=== PATIENT | female | born 1960 | race Hispanic/Latino ===

== ENCOUNTER 2018-05-18 22:34 | Emergency (ER) | payer MEDICAID ==
[2018-05-18 22:48] VITALS: O2SAT 99; BMI 26.1
--- NOTE | 2018-05-18 23:32 | ED PDOC ---
Arrival/HPI - General Chief Complaint: Trauma Time Seen by Provider: 05/18/18 22:50 Historian: Patient - History of Present Illness Narrative History of Present Illness (Text): 05/18/18 23:32 Luz Avalos is a 57 year old female who presents to the Emergency department status post mechanical fall tonight. Patient states she tripped and fell while at home, now complaining of right knee pain and left wrist pain with associated swelling. Patient denies any weakness/numbness/tingling in the extremity, back pain, neck pain, headache, dizziness, or any other complaints. 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) - Endocrine/Metabolic Hx Diabetes Mellitus Type 2: Yes - Psychiatric Hx Substance Use: No - Anesthesia Hx Anesthesia: No Hx Anesthesia Reactions: No Hx Malignant Hyperthermia: No Family/Social History - Physician Review Nursing Documentation Reviewed: Yes Family/Social History: Unknown Family HX Smoking Status: Never Smoked Hx Alcohol Use: No Hx Substance Use: No Allergies/Home Meds Allergies/Adverse Reactions: Allergies Penicillins Adverse Reaction (Verified 05/18/18 22:49) RASH Home Medications: Home Meds Medication Instructions Recorded Confirmed Clonazepam [Klonopin] 1 mg PO DAILY 05/18/18 05/18/18 Colchicine [Colcrys] 0.6 mg PO DAILY 05/18/18 05/18/18 Lamotrigine [Lamictal (Blue)] 25 mg PO DAILY 05/18/18 05/18/18 Propranolol [Inderal] 40 mg PO DAILY 05/18/18 05/18/18 QUEtiapine [SEROquel XR] 50 mg PO DAILY 05/18/18 05/18/18 Ramipril [Altace] 10 mg PO DAILY 05/18/18 05/18/18 Review of Systems - Physician Review All systems were reviewed & negative as marked: Yes - Review of Systems Constitutional: Normal. absent: Fevers Eyes: Normal ENT: Normal Respiratory: Normal. absent: SOB, Cough Cardiovascular: Normal. absent: Chest Pain Gastrointestinal: Normal. absent: Abdominal Pain, Diarrhea, Nausea, Vomiting Genitourinary Female: Normal. absent: Dysuria, Frequency, Urine Output Changes Musculoskeletal: Arthralgias (+left wrist pain/swelling, +right knee pain). absent: Back Pain, Neck Pain Skin: Normal Neurological: Normal Endocrine: Normal Hemo/Lymphatic: Normal Psychiatric: Normal Physical Exam Vital Signs Reviewed: Yes Vital Signs Temp Pulse Resp BP Pulse Ox 05/19/18 03:22 98.8 F 80 18 128/84 99 05/18/18 22:45 98.7 F 70 16 138/88 99 Temperature: Afebrile Blood Pressure: Normal Pulse: Regular Respiratory Rate: Normal Appearance: Positive for: Well-Appearing, Non-Toxic, Comfortable Pain Distress: None Mental Status: Positive for: Alert and Oriented X 3 - Systems Exam Head: Present: Atraumatic, Normocephalic Pupils: Present: PERRL Extroacular Muscles: Present: EOMI Conjunctiva: Present: Normal Mouth: Present: Moist Mucous Membranes Neck: Present: Normal Range of Motion. No: Meningeal Signs, MIDLINE TENDERNESS , Paraspinal Tenderness Respiratory/Chest: Present: Clear to Auscultation, Good Air Exchange. No: Respiratory Distress, Accessory Muscle Use Cardiovascular: Present: Regular Rate and Rhythm, Normal S1, S2. No: Murmurs Abdomen: No: Tenderness, Distention, Peritoneal Signs Back: Present: Normal Inspection Upper Extremity: Present: NORMAL PULSES, Tenderness (Tenderness to left wrist), Swelling (Swelling to left wrist), Neurovascularly Intact, Capillary Refill < 2s. No: Cyanosis, Edema, Normal ROM (pain with any attempt at flexion of left wrist), Erythema, Temperature Abnormalties Lower Extremity: Present: NORMAL PULSES, Normal ROM, Neurovascularly Intact, Capillary Refill < 2 s, Other (Superficial abrasion to right knee with hematoma below right knee). No: Edema, Swelling, Erythema, Deformity, Temperature Abnormalties Neurological: Present: GCS=15, CN II-XII Intact, Speech Normal, Motor Func Grossly Intact, Normal Sensory Function, Normal Cerebellar Funct Skin: Present: Warm, Dry, Normal Color. No: Rashes Psychiatric: Present: Alert, Oriented x 3, Normal Insight, Normal Concentration Medical Decision Making ED Course and Treatment: 05/18/18 23:32 Impression: 57 year old female presents s/p mechanical fall with left wrist pain and right knee pain. Differential Diagnosis included but are not limited to: fracture vs. sprain vs. contusion Plan: -- XR Left Wrist -- XR Right Knee -- Toradol -- Reassess and disposition Progress Notes: 05/19/18 02:[address] Davis's service 05/19/18 02:40 2nd call placed to Dr. Davis's service. Awaiting call back. 05/19/18 02:443y, XR Left Wrist shows: Bones/joints: Impacted transverse fractures of the distal radius and distal ulna. Intra-articular extension of the radial fracture. No dislocation. Soft tissues: Unremarkable. No radiopaque foreign body. IMPRESSION: 1. Impacted transverse fractures of the distal radius and distal ulna. 2. Intra-articular extension of the radial fracture. XR Right Knee shows: Bones/joints: Small joint effusion. No patella sanjeev demonstrated. No acute fracture. No dislocation. Soft tissues: Question avulsion of the infrapatellar tendon from the anterior tibial spine with wedgeshaped defect and overlying soft tissue swelling. IMPRESSION: 1. Question avulsion of the infrapatellar tendon from the anterior tibial spine with wedge-shaped defect and overlying soft tissue swelling. 2. Small joint effusion. 05/19/18 02:[address] Davis, who is aware and agrees with plan. States pt can f/u outpt tomorrow. - RAD Interpretation Radiology Orders: 05/18/18 23:34 WRIST, LEFT 3 VIEWS [RAD] Stat 05/18/18 23:35 KNEE W PATELLA RIGHT 3 VIEW [RAD] Stat Kitchen Lead: Radiologist - Medication Orders Current Medication Orders: Discontinued Medications Ketorolac Tromethamine (Toradol) 60 mg IM ONCE ONE Stop: 05/18/18 23:35 Oxycodone/Acetaminophen (Percocet 5/325 Mg Tab) 1 tab PO STAT STA Stop: 05/19/18 01:41 Last Admin: 05/19/18 02:02 Dose: Not Given Non-Admin Reason: Patient Refused MAR Pain Assessment Document 05/19/18 02:02 TA (Rec: 05/19/18 02:02 TA [id number]) Pain Reassessment Is this a pain reassessment? Yes Sleep Is patient sleeping during reassessment? No Presence of Pain Presence of Pain Yes Oxycodone/Acetaminophen (Percocet 5/325 Mg Tab) 1 tab PO STAT STA Stop: 05/19/18 03:00 Last Admin: 05/19/18 03:14 Dose: 1 tab MAR Pain Assessment Document 05/19/18 03:14 TA (Rec: 05/19/18 03:14 TA [id number]) Pain Reassessment Is this a pain reassessment? Yes Sleep Is patient sleeping during reassessment? No Presence of Pain Presence of Pain Yes Pain Scale Used Pain Scale Used Numeric Location Left, Right or Bilateral Left Pain Location Body Site Arm Description Description Sharp - Scribe Statement The provider has reviewed the documentation as recorded by the Scribemely Langston Provider Scribe Attestation: All medical record entries made by the Scribe were at my direction and personally dictated by me. I have reviewed the chart and agree that the record accurately reflects my personal performance of the history, physical exam, medical decision making, and the department course for this patient. I have also personally directed, reviewed, and agree with the discharge instructions and disposition. Disposition/Present on Arrival - Present on Arrival Any Indicators Present on Arrival: No History of DVT/PE: No History of Uncontrolled Diabetes: No Urinary Catheter: No History of Decub. Ulcer: No History Surgical Site Infection Following: None - Disposition Have Diagnosis and Disposition been Completed?: Yes Diagnosis: Wrist fracture, Knee contusion, Patellar tendon avulsion Disposition: HOME/ ROUTINE Disposition Time: 03:10 Patient Plan: Discharge Condition: STABLE Discharge Instructions (ExitCare): Contusion (DC), Wrist Fracture (DC) Additional Instructions: Maintain splint/knee immobilizer until seen by the orthopedist /take meds as prescribed/follow up with the orthopedist tomorrow Prescriptions: oxyCODONE/Acetaminophen [Percocet 5/325 mg Tab] 1 ea PO Q6 PRN #10 tab PRN Reason: Pain, Moderate (4-7) Referrals: FAMILY PROVIDER,NO [Primary Care Provider] - Follow up with primary Jt Davis III, MD [Medical Doctor] - Follow up with primary Forms: [employer] (Amharic)
[2018-05-19] MEDS: Oxycodone/Acetaminophen 5/325 mg Tab PO STA ×2 (01:57→02:02)
[2018-05-19] MEDS ORDERED: Oxycodone/Acetaminophen 5/325 mg Tab PO STA (02:59)
[2018-05-19 03:24] VITALS: BP 128/84; PULSE 80; RESP 18; TEMP 98.8
--- NOTE | 2018-05-19 11:20 | RAD ---
PROCEDURE: Left Wrist Radiographs. HISTORY: injury COMPARISON: None. FINDINGS: BONES: Fractures of the distal radius and ulna. The radial fracture contains an intra-articular component. The ulnar fracture does not. JOINTS: Normal. No dislocation. SOFT TISSUES: Soft tissue swelling attests to the acuity of the fracture. OTHER FINDINGS: None. IMPRESSION: Acute fractures distal left radius and ulna.
--- NOTE | 2018-05-19 11:21 | RAD ---
PROCEDURE: Right Knee Radiographs. HISTORY: injury COMPARISON: None. FINDINGS: BONES: Normal. No fracture. JOINTS: Normal. No osteoarthritis. JOINT EFFUSION: None. OTHER FINDINGS: Soft tissue swelling at the level of the proximal tibia. No adjacent osseous or articular abnormalities. There is cortical disruption at the level of the tibial tuberosity but this appears be a normal variant. IMPRESSION: Soft tissue swelling without acute articular or osseous abnormality. If fracture is suspected particularly as pertains to the finding in the proximal tibia follow-up recommended.
== END 2018-05-19 03:22 | disposition home or self-care (01) ==
LOC: ED 22:34
DX: S52.572A Other intraarticular fracture of lower end of left radius, initial encounter for closed fracture (principal); S52.602A Unspecified fracture of lower end of left ulna, initial encounter for closed fracture; S76.191A Other specified injury of right quadriceps muscle, fascia and tendon, initial encounter; S80.01XA Contusion of right knee, initial encounter; W01.0XXA Fall on same level from slipping, tripping and stumbling without subsequent striking against object, initial encounter; Y92.007 Garden or yard of unspecified non-institutional (private) residence as the place of occurrence of the external cause